=== PATIENT | male | born 1970 | race Caucasian/White ===

== ENCOUNTER 2024-11-17 20:08 | Emergency (ER) | payer BC, SELFPAY ==
[2024-11-17 20:33] VITALS: BP 125/90; PULSE 101; RESP 18; TEMP 37; O2SAT 97; BMI 20.5
--- NOTE | 2024-11-17 22:23 | ED_ITS ---
HPI - General Adult General Chief complaint: Unspecified Complaint, Adult Stated complaint: chills/sweaty/popping in ears Time Seen by Provider: 11/17/24 21:35 History of Present Illness HPI narrative: This 54-year-old male comes in reporting symptoms over the past 3 or 4 days. He states that he was excessively sweaty at work for a couple days then felt better and then again yesterday had similar symptoms. He states that he had some popping noise in his ears and feels some pressure in his sinuses. He states that he has a history of recurrent sinus infections after having surgery with metal plates installed in his facial bones long ago. He states that he does use alcohol excessively and drinks a pt of vodka every day. He admits that he is an alcoholic. He is going through a divorce currently. He arrives here with normal vital signs. His heart is borderline tachycardic. He denies having any withdrawal symptoms. Related Data Home Medications ?Medication ?Instructions ?Recorded ?Confirmed Kratom 11/17/24 Allergies Allergy/AdvReac Type Severity Reaction Status Date / Time No Known Drug Allergies Allergy Verified 11/17/24 20:41 Review of Systems Status of ROS: Reports: 10 or more systems reviewed and unremarkable except as noted in History and below Narrative: Constitutional: No weight gain or loss. He felt hot and then sweaty but did not measure a fever. Eyes: No discharge. No vision changes. HENT: No congestion, no sore throat. He reports some pressure in his sinuses. He also states that he had an abscessed tooth a few weeks ago and symptoms have resolved. Cardiovascular: No chest pain, no palpitations. Respiratory: No shortness of breath, no wheezes, no cough. Gastrointestinal: No abdominal pain, no vomiting, no diarrhea. Genitourinary: No dysuria, no hematuria. Musculoskeletal: Normal range of motion. Skin: No rashes, no pruritis. Neurological: No dizziness, weakness, sensory change, speech change. Endo/Heme/Allergies: No bruising or bleeding. No polydipsia. Pysch: no suicidality, no anxiety, no insomnia. All other systems reviewed and are negative. Exam Narrative: Exam Narrative: Constitutional: Well-developed, well-nourished, no acute distress. HEENT: Normocephalic, atraumatic. Tympanic membranes appear normal bilaterally. Neck: Normal range of motion. Nontender. Supple. Heart: Regular. No murmurs. Normal rate. Intact distal pulses. Lungs: Clear to auscultation. No chest discomfort. No wheezes, rhonchi, or rales. Abdomen: Normal bowel sounds. Nontender. No rebound tenderness. Genitalia: Deferred. Back: No midline tenderness. Normal range of motion. Extremities: Normal range of motion. No injury. Skin: Intact. No rash. Warm. No erythema or pallor. Neurologic: No altered sensation. No weakness. Alert and oriented. Psychiatric: No suicidality. No anxiety or depression. No insomnia. Nursing notes and vitals signs are reviewed. Const: Vital Signs, click to edit/add: Vital Signs - 24 hr 11/17/24 20:33 Temperature 98.6 F Pulse Rate [Pulse Oximeter] 101 H Respiratory Rate 18 Blood Pressure [Ri ght Upper Arm] 125/90 H Pulse Oximetry 97 Oxygen Delivery Me thod Room Air Course Vital Signs Vital signs: Initial Vital Signs Temperature 98.6 F 11/17/24 20:33 Temperature Source Temporal Artery Scan 11/17/24 20:33 Pulse Rate 101 H 11/17/24 20:33 Respiratory Rate 18 11/17/24 20:33 Blood Pressure 125/90 H 11/17/24 20:33 Blood Pressure Mean 101 11/17/24 20:33 Blood Pressure Position Sitting 11/17/24 20:33 Pulse Oximetry 97 11/17/24 20:33 Oxygen Delivery Method Room Air 11/17/24 20:33 Vital Signs Temperature 98.6 F 11/17/24 20:33 Pulse Rate 101 H 11/17/24 20:33 Respiratory Rate 18 11/17/24 20:33 Blood Pressure 125/90 H 11/17/24 20:33 Pulse Oximetry 97 11/17/24 20:33 Oxygen Delivery Method Room Air 11/17/24 20:33 Temperature 98.6 F 11/17/24 20:33 Pulse Rate 101 H 11/17/24 20:33 Respiratory Rate 18 11/17/24 20:33 Blood Pressure 125/90 H 11/17/24 20:33 Pulse Oximetry 97 11/17/24 20:33 Oxygen Delivery Method Room Air 11/17/24 20:33 Medical Decision Making MDM Narrative Medical decision making narrative: This patient comes in reporting generalized malaise and excessively sweaty over some of the past several days. He arrives here with reassuring vital signs and has no current symptoms. Additionally his exam is showing no abnormalities. He does state that he has recurrent sinus infections after having surgery on his sinuses. He did have metal plates installed because of trauma to his face long ago. He states that he has had recurrent infections since then. I did not do CT imaging as the metal would likely show significant artifact. I did elect to prescribe amoxicillin from the [employer] machine in the event that he may have a sinusitis or some dental symptoms as he reported occurring a few weeks ago. Discharge Plan Discharge Clinical Impression: Sinusitis Patient Disposition: Home, Self-Care Condition: Stable Additional Instructions: Take medication as prescribed. Take plenty of fluids. Continue other current plans. Follow up with MD return if worsening. Prescriptions: No Action Shana Stand Alone Forms: [employer] Info Instructions
--- OUTSIDE RECORDS SUMMARY | 2024-11-17 22:46 | XMS_ITS | Clinical Summary ---
Author Organization [facility] Address [address] [place] [address] Care Team Providers Care Night Time Babysitter Name Role Phone Yari Lazo APRN, C. N.P., D.N.P., M.S.N. Primary Care Provider Source Comments Patient records contain information from all sites at [facility]. For routine questions regarding patient records, call [phone] during business hours, M-F 8:00 AM - 5:00 PM Central Time. Record requests for emergency care only can be directed to [phone] at any time.[facility] Allergies No known active allergies Medications * This document contains information received from the source organization and may not represent a complete record from that organization. nicotine polacrilex (NICORETTE) 2 mg gum Chew 1 piece of gum every 1 to 2 hours as needed or as directed for nicotine withdrawal symptoms 110 each 11 12/26/2022 11:13 AM CDT 3 Active atorvastatin (LIPITOR) 10 mg tablet Take 1 tablet (10 mg total) by mouth daily. 90 tablet 3 04/27/2023 2:54 PM WASHERETTE MACHINE OPERATOR 4 Active FLUoxetine (PROzac) 20 mg capsule Take 1 capsule (20 mg total) by mouth daily. 90 capsule 3 04/27/2023 2:54 PM WASHERETTE MACHINE OPERATOR 4 Active busPIRone (BUSPAR) 15 mg tablet Take 1 tablet (15 mg total) by mouth 2 (two) times a day. For break through anxiety 60 tablet 11 05/28/2023 2:01 PM CDT 02/13/202 4 Active Active Problems Problem Noted Date Diagnosed Date Anxiety 04/17/2023 Overview (04/17/2023): 04/17/23 - increased anxiety since cessation of alcohol in Feb. Noticing social anxiety. Troubles sleeping at night time. More irritability. Questions if alcohol was masking alcohol previously. Assessment & Plan (04/17/2023 10:23 AM WASHERETTE MACHINE OPERATOR): We will start him on fluoxetine 20 mg daily. Also start buspar 15 mg twice daily. We discussed he can cut buspar in half and/or only use at bedtime if it is becoming too sedating. Could also explore trazodone or hydroxyzine at bedtime for anxiety if he continues to have sleep troubles. He was using gabapentin but weaned off. He did not find this particularly helpful for sleep. Continue to exercise. He will plan to return to work tomorrow without restrictions. I will ask our nursing team to reach out to him in 1 week to check in and encouraged him to reach out sooner if questions or concerns arise. Fasciitis Plantar 07/29/2020 Overview (07/29/2020): 07/29/20 - several years of plantar fasciitis. Finds work shoe inserts to be helpful. He is also found success in steroid injections into his feet bilaterally in the past. Has been sometime since he has had this completed. Assessment & Plan (07/29/2020 4:48 PM CDT): He has suffered from many years of plantar fasciitis. He has found success in symptom management with steroid injections into the feet before. I will set him up for injections. We did discuss consideration of visiting with Podiatry for custom- made inserts and shoe wear. He would like to hold off at this time but will let me know if he would like referral at a later date. [facility] patient Education handout on plantar fasciitis was provided to the patient for home exercises to complete regularly. Pain Shoulder Right 07/29/2020 Overview (07/29/2020): 07/29/20 - two remote injuries to right shoulder. He has pain with extending the arm across the chest. He also has limited range of motion with internal and external rotation. No weakness to the right arm. Assessment & Plan (07/29/2020 4:47 PM CDT): Will have him start with home exercises. I think there is a component of rotator cuff tendinopathy and underlying osteoarthritis in his dominant arm. He may utilize momj-hlw-typuiwe topicals, such as icy Hot or Voltaren gel for pain and discomfort. If no improvement or worsening symptoms, recommend x-ray of right shoulder and consider formal physical therapy. Release Contracture Dupuytren's Status Post 04/05 Smoking Tobacco Use Personal History 03/16/2020 Overview (12/26/2022): 03/16/20 - Chantix; working well started at age 14 and quit age 50. 1 pack per day on average. Did quit for 3 years during this time frame. Pack year history 33. 07/29/20 - would like to restart Chantix Quit smoking in 2021. Does vape. Assessment & Plan (12/26/2022 9:41 AM CDT): Quit smoking in 2021. Does vape. He is interested in trying the gum. Assessment & Plan (07/29/2020 4:45 PM CDT): Restart chantix. He is ready to quit. Assessment & Plan (03/16/2020 11:03 AM WASHERETTE MACHINE OPERATOR): Continue chantix. Moderate Or Severe Use Disor vesta (Dependence) Alcohol Remission 03/16/2020 Overview (04/17/2023): Last drink was Feb 22, 2023 anywhere from 2-5 drinks on average per night. Beverage of choice is beer or scotch. 12/26/2022 - drinking 4 beers nightly and average of several shots of whisky. Reports has been doing this consistently for 4 years. Interested in quitting. It is affecting his marriage. Reports starts drinking at 5pm when he gets home from work until he goes to bed. Reports that when he has tried to reduce consumption he has had insomnia, restlessness at bedtime. Plan to start gabapentin and connect with [facility] social work team for resources. 02/22/23 - last drink. He underwent detox through [facility]. Did attend some alc anony meetings. Family support. No cravings. Having social anxiety. Assessment & Plan (04/17/2023 10:14 AM WASHERETTE MACHINE OPERATOR): I congratulated him for this hard work he has been doing towards his health. He reports aside from the anxiety he is doing well. Relationship is going well with and family. He has found enjoyment in cooking. He would like to return to work tomorrow. I have signed his form for him to return tomorrow without any restrictions. Assessment & Plan (03/16/2020 11:33 AM WASHERETTE MACHINE OPERATOR): Discussed CDC recommendations of no more than 2 drinks per night for min. Recommend cutting down, especially in the presence of history of elevated liver enzymes. Contracture Dupuytren's 03/16/2020 Overview (04/19/2020): 03/16/2020-he reports approximately 6-7 years of contracture in the right hand 4th digit. He is right-hand dominant Within the past 18 months it has progressively stiffened where he cannot extend this digit. There is joint tenderness. There is no redness or inflammation. He is noticing that the left hand 4th digit as well as thumbs bilaterally are becoming affected as well. 04/15 - surgical release of contracture Assessment & Plan (03/16/2020 11:34 AM WASHERETTE MACHINE OPERATOR): Referral to Ortho. Surgical candidate verses injection. Will update hand x-rays prior to referral. Resolved Problems Problem Noted Date Diagnosed Date Resolved Date Elevated Liver Function Test 03/16/2020 04/17/2023 Overview (03/16/2020): 03/16/20 - reports history of 1 previously living in [place]. Likely related to alcohol use. Will recheck hepatic enzymes along with ultrasound of liver. Assessment & Plan (03/16/2020 11:33 AM WASHERETTE MACHINE OPERATOR): reports history of 1 previously living in [place]. Likely related to alcohol use. Will recheck hepatic enzymes along with ultrasound of liver. Encounters Date Type Department Care Team Description 11/17/2024 Nurse Triage Division of [facility] Internal Medicine, [facility], in [place], [place] [address] [place] [address] Roberta Cameron R.N. Excessive Sweating; Chills; Fatigue; Heaviness in his Arms and Legs from Last 3 Months Immunizations Immunization Administration Dates Next Due Tdap 03/16/2020 Family History Medical History Relation Name Comments No Known Problems Brother 1 No Known Problems Brother 2 No Known Problems Brother 3 Alcohol abuse Father Father Benign prostatic hyperplasia Father Father Liver disease Father Father Prostate cancer Father Father Dementia Mother Mother Hyperlipidemia Mother Mother Transient ischemic attack Mother Mother Prostate cancer Other paternal unc les (8 brothers) Depression Sister 1 Sister No Known Problems Sister 2 No Known Problems Sister 3 Relation Name Status Comments Brother 1 Alive Brother 2 Alive Brother 3 Alive Father Father Alive Mother Mother Other Sister 1 Sister Alive Sister 2 Alive Sister 3 Alive Social History Tobacco Use Types Packs/Day Years Used Date Smoking Tobacco: Former Cigarettes 0.3 6 0 03/05/2015 - 03/05/2021 Passive Smoke Exposure: Never Smokeless Tobacco: Never Alcohol Use Standard Drinks/Week Comments Yes 3 (1 standard drink = 0.6 oz pur e alcohol) [facility] Utilities Answer Date Recorded In the past 12 months has e [employer], gas, oil, or water [employer] threatened to shut off services in your home? No 01/12/2024 Hunger Vital Sign Answer Date Recorded Within the past 12 months, y ou worried that your food would run out before you got the money to buy more. Never true 01/12/20 24 Within the past 12 months, t he food you bought just didn't last and you didn't have money to get more. Never true 01/12/2024 PRAPARE - Transportation Answer Date Re corded In the past 12 months, has l ack of transportation kept you from medical appointments or from getting medications? No 11/2023 In the past 12 months, has l ack of transportation kept you from meetings, work, or from getting things needed for daily living? No 01/12/2024 Housing Stability Answer Date Recorded What is your living situation today? I have a crystal place to live 01/12/2024 Education Answer Date Recorded What is the highest level of school you have completed or the highest degree you have received? 12th grade 03/18/2020 Sex and Gender Information Value Date Recorded Sex Assigned at Male 11/21/2022 12:03 PM CDT Legal Sex Male 9:21 AM WASHERETTE MACHINE OPERATOR Gender Identity Male 03/17/2020 5:12 PM WASHERETTE MACHINE OPERATOR Sexual Orientation Straight 03/17/2020 5: 12 PM WASHERETTE MACHINE OPERATOR Last Filed Vital Signs Vital Sign Reading Time Taken Comments Blood Pressure 128/79 04/17/2023 9:56 AM WASHERETTE MACHINE OPERATOR Pulse 86 04/17/2023 9:00 AM WASHERETTE MACHINE OPERATOR Temperature 37 C (98.6 F) 11/21/2022 6:24 PM CDT Respiratory Rate 18 09/10/2020 1:45 PM CDT Oxygen Saturation 96% 11/21/2022 6:24 PM CDT Inhaled Oxygen Concentration - - Weight 70.1 kg (154 lb 8.7 oz) 04/17/2023 9:00 A M WASHERETTE MACHINE OPERATOR Height 180.5 cm (5' 11.06) 12/26/2022 9:21 AM C DT Body Mass Index 21.52 12/26/2022 9:21 AM CDT Plan of Treatment Upcoming Encounters Date Type Department Care Team (Late st Contact Info) Description 11/18/2024 9:20 AM CDT Comprehensive Visit Division of [facility] Internal Medicine, [facility], in [place], [place] [address] [place] [phone] Yari Lazo APRN, C.N.P., D.N.P., M.S.N. [address] [place] [phone] Health Maintenance Due Date Last Done Comments CT Colonography 1970 Cologuard 1970 FIT 1970 HIV Screening 1970 Hepatitis C Screening 1970 Hepatitis B Vaccines (1 of 3 - 19+ 3-dose series) 1989 Pneumococcal vaccine (50+ years) (1 of 2 - PCV) 1989 Zoster Vaccines (1 of 2) 02/22/2020 Depression Screening (Annual PHQ-2) 03/05/2024 COVID-19 Vaccine (1 - season) 2024 Influenza Vaccine (#1) 2024 Fasting Glucose for Diabetes Screening 02/09/2026 02/09/2023, 12/26/2022, 12/26/2022, Additional history exists Lipid (Cholesterol) Screening 02/10/2028 02/09/2023, 12/26/2022, 03/16/2020 DTaP,Tdap,and Td Vaccines (2 - Td or Tdap) 03/16/2030 03/16/2020 Colonoscopy 04/08/2030 04/08/2020 Colorectal Cancer Screening 04/08/2030 IPV Vaccines Aged Out No longer eligi ble based on patient's age to complete this topic Medical Devices Implanted Type Area Adapted Physical Education Teacher Device Identifier Shelf Expiration Date Model / Serial / Lot Hardware E.G. Pins/Screws/R ods Hardware e.g. pins/screws/ rods Right: Eye 2.0 T-Plate Implanted:Qty : 1 on 04/15/2020 by Ernesto Panda M.D. at [facility] Hardware e.g. pins/screws/ rods Right: Ring Finger [employer] MCT-7N / / 2.0 Cortical Screw Implanted:Qty : 1 on 04/15/2020 by Ernesto Panda M.D. at [facility] Hardware e.g. pins/screws/ rods Right: Ring Finger [employer] MCCS2.0-0 6 / / 2.0 Cortical Screw Implanted:Qty : 1 on 04/15/2020 by Ernesto Panda M.D. at [facility] Hardware e.g. pins/screws/ rods Right: Ring Finger [employer] MCCS2.0-0 7 / / 2.0 Cortical Screw Implanted:Qty : 1 on 04/15/2020 by Ernesto Panda M.D. at [facility] Hardware e.g. pins/screws/ rods Right: Ring Finger [employer] MCCS2.0-0 9 / / 2.0 Cortical Screw Implanted:Qty : 1 on 04/15/2020 by Ernesto Panda M.D. at [facility] Hardware e.g. pins/screws/ rods Right: Ring Finger [employer] MCCS2.0-1 6 / / 2.0 Locking Screws Implanted:Qty : 1 on 04/15/2020 by Ernesto Panda M.D. at [facility] Hardware e.g. pins/screws/ rods Right: Ring Finger [employer] MCLS2.0-0 6 / / 2.0 Locking Screws Implanted:Qty : 2 on 04/15/2020 by Ernesto Panda M.D. at [facility] Hardware e.g. pins/screws/ rods [employer] MCLS2.0-7 / / 2.0 Locking Screws Implanted:Qty : 1 on 04/15/2020 by Ernesto Panda M.D. at [facility] Hardware e.g. pins/screws/ rods [employer] MCLS2.0-1 6 / / Procedures Procedure Name Priority Date/Time Associated Diagnosis Comments BASIC METABOLIC PANEL, S/P Routine 02/09/2023 2:19 PM WASHERETTE MACHINE OPERATOR Alcohol Moderate Or Severe Use Disorder (Dependence) Uncomplicated (HCC) LIPID PANEL, S Routine 02/09/2023 2:19 PM WASHERETTE MACHINE OPERATOR Alcohol Moderate Or Severe Use Disorder (Dependence) Uncomplicated (HCC) COLONOSCOPY Routine 04/08/2020 10:17 AM WASHERETTE MACHINE OPERATOR Screening Cancer Colon from Last 3 Months or Most Recently Relevant to Health Maintenance Results * Lipid Panel (02/09/2023 2:19 PM WASHERETTE MACHINE OPERATOR) Triglycerides 103 mg/dL 02/09/2023 3:14 PM WASHERETTE MACHINE OPERATOR DTL Comment: ----REFERENCE VALUE---- Normal: <150 mg/dL Borderline High: 150-199 mg/dL High: 200-499 mg/dL Very High: > or =500 mg/dL Cholesterol, Total 194 mg/dL 2022 3:14 PM WASHERETTE MACHINE OPERATOR DTL Comment: ----REFERENCE VALUE---- Desirable: < 200 mg/dL Borderline High: 200 - 239 mg/dL High: > or = 240 mg/dL Cholesterol, LDL, Calculated 74 mg/dL 02/09/2023 3:14 PM WASHERETTE MACHINE OPERATOR DTL Comment: ----REFERENCE VALUE---- Desirable: <100 mg/dL Above Desirable: 100-129 mg/dL Borderline High: 130-159 mg/dL High: 160-189 mg/dL Very High: >=190 mg/dL ----ADDITIONAL INFORMATION---- LDL cholesterol calculated using the Romeo/NIH equation. Cholesterol, HDL, S 102 >=40 mg/dL 02/09/2023 3:14 PM WASHERETTE MACHINE OPERATOR DTL Cholesterol, Non-HDL, Calculated 92 mg/dL 02/09/2023 3:14 PM WASHERETTE MACHINE OPERATOR DTL Comment: ----REFERENCE VALUE---- Desirable: <130 mg/dL Above Desirable: 130-159 mg/dL Borderline High: 160-189 mg/dL High: 190-219 mg/dL Very High: > or =220 mg/dL Fasting (8 HR or more) Yes 02/09/2023 2:49 PM WASHERETTE MACHINE OPERATOR DTL Blood (Blood, Venous) 02/09/2023 2:19 PM WASHERETTE MACHINE OPERATOR 02/09/2023 2:49 PM WASHERETTE MACHINE OPERATOR Yari Lazo APRN, C.N.P., D.N.P., M.S.N. LAB BLOOD ADD-ON Final Result [facility] [address] [place] [address], [facility] [address] [place] [address] * (ABNORMAL) Basic Metabolic Panel (02/09/2023 2:19 PM WASHERETTE MACHINE OPERATOR) Pathologist [facility] Potassium, S 3.8 3.6 - 5.2 mmol/L 02/09/2023 3:14 PM WASHERETTE MACHINE OPERATOR DTL Sodium, S 140 135 - 145 mmol/L 02/09/2023 3:14 PM WASHERETTE MACHINE OPERATOR DTL Chloride, S 102 98 - 107 mmol/L 02/09/2023 3:14 PM WASHERETTE MACHINE OPERATOR DTL Bicarbonate, S 24 22 - 29 mmol/L 02/09/2023 3:14 PM WASHERETTE MACHINE OPERATOR DTL Anion Gap 14 7 - 15 02/09/2023 3:14 PM WASHERETTE MACHINE OPERATOR DTL BUN (Blood Urea Nitrogen), S 6(L) 8 - 24 mg/dL 02/09/2023 3:14 PM WASHERETTE MACHINE OPERATOR DTL Creatinine 0.81 0.74 - 1.35 mg/dL 02/09/2023 3:14 PM WASHERETTE MACHINE OPERATOR DTL Estimated GFR (eGFR) >90 >=60 mL/min/BSA 02/09/2023 3:14 PM WASHERETTE MACHINE OPERATOR DTL Comment: Estimated GFR calculated using the 2020 CKD_EPI creatinine equation. Calcium, Total, S 9.8 8.6 - 10.0 mg/dL 02/09/2023 3:14 PM WASHERETTE MACHINE OPERATOR DTL Glucose, S 94 70 - 140 mg/dL 02/09/2023 3:14 PM WASHERETTE MACHINE OPERATOR DTL Blood (Blood, Venous) 02/09/2023 2:19 PM WASHERETTE MACHINE OPERATOR 02/09/2023 2:49 PM WASHERETTE MACHINE OPERATOR Yari Lazo APRN, C.N.P., D.N.P., M.S.N. LAB BLOOD ADD-ON Final Result [address] [address], [facility] [place] [address] * Colonoscopy (04/08/2020 10:17 AM WASHERETTE MACHINE OPERATOR) 04/08/2020 10:1 7 AM WASHERETTE MACHINE OPERATOR Impressions [facility] - 04/08/2020 11:32 AM WASHERETTE MACHINE OPERATOR Post-op Diagnoses: - The entire examined colon is normal. - No specimens collected. Narrative [facility] - 04/08/2020 11:32 AM WASHERETTE MACHINE OPERATOR [facility] GI Patient Name: Venus Kuo Date of : 1970 Age: 50 Gender: Male Procedure Date: 04/08/2020 Procedure: Colonoscopy Providers: Marky Antunez MD Referring Provider: Yari Nazario Pre-op Diagnoses: Screening for colorectal malignant neoplasm Recommendation: - The patient will be observed post-procedure, until all discharge criteria are met. - Return to referring physician as previously scheduled. - Repeat colonoscopy in 10 years for screening purposes. Findings: The colon (entire examined portion) appeared normal. Procedural Details: The patient was seen, evaluated, history reviewed, airway and heart-lung exams were performed by licensed provider and were satisfactory for planned level of sedation care. The risks, benefits and alternatives for the procedure and sedation were discussed and informed consent was obtained. A procedural pause was conducted in the presence of assisting personnel to verify the correct patient identity and procedure to be performed. Throughout the procedure, the patient's blood pressure, pulse, and oxygen saturations were monitored continuously. The Pediatric Colonoscope was introduced under direct vision through the anus and advanced to the cecum, identified by appendiceal orifice and ileocecal valve. The colonoscopy was performed without difficulty. The patient tolerated the procedure well. The quality of the bowel preparation was good. The quality of the bowel preparation was evaluated using the BBPS ([place] Bowel Preparation Scale) with scores of: Right Colon = 2 (minor amount of residual staining, small fragments of stool and/or opaque liquid, but mucosa seen well), Transverse Colon = 3 (entire mucosa seen well with no residual staining, small fragments of stool or opaque liquid) and Left Colon = 3 (entire mucosa seen well with no residual staining, small fragments of stool or opaque liquid). The total BBPS score equals 8. Estimated Blood Loss: Estimated blood loss: none. Complications: No immediate complications. Sedation: Anesthesia was administered by an anesthesia professional. The following parameters were monitored: oxygen saturation, heart rate, blood pressure, respiratory rate, EKG, adequacy of pulmonary ventilation, and response to care. Attending Participation: I personally performed the entire procedure. Marky Antunez MD 04/08/2020 11:32:48 AM This report has been signed electronically. Number of Addenda: 0 Yari Lazo APRN, C.N.P., D.N.P., M.S.N. GI PROCEDURE ORDERABLES Final Result [employer] NA from Last 3 Months or Most Recently Relevant to Health Maintenance Insurance [facility] Care Teams Night Time Babysitter Relationship Specialty Start Date End Date Yari Lazo APRN, C.N.P., D.N.P., M.S.N. [address] [place] [phone] PCP - General Internal Medicine 03/11/20
--- OUTSIDE RECORDS SUMMARY | 2024-11-17 22:46 | XMS_ITS | Encounter Summary ---
Author Organization [facility] Address [address] [place] [address] Care Team Providers Care Solidworks Drafter Name Role Phone Yari Lazo APRN, C. N.P., D.N.P., M.S.N. Primary Care Provider Reason for Visit * Reason Onset Date Comments Excessive Sweating 11/17/2024 Chills 11/17/2024 Fatigue 11/17/2024 Heaviness in his Arms and Legs 11/17/2024 Encounter Details Date Type Department Care Team (Late st Contact Info) Description 11/17/2024 Nurse Triage Division of [facility] Internal Medicine, [facility], in [place], [place] [address] [place] [address] Roberta Cameron, R.N. Excessive Sweating; Chills; Fatigue; Heaviness in his Arms and Legs Social History Tobacco Use Types Packs/Day Years Used Date Smoking Tobacco: Former Cigarettes 0.3 6 0 03/05/2015 - 03/05/2021 Passive Smoke Exposure: Never Smokeless Tobacco: Never Alcohol Use Standard Drinks/Week Comments Yes 3 (1 standard drink = 0.6 oz pur e alcohol) [facility] Utilities Answer Date Recorded In the past 12 months has e electric, gas, oil, or water company threatened to shut off services in your [...] PM CDT Legal Sex Male 9:21 AM CASH APPLICATION CLERK Gender Identity Male 03/17/2020 5:12 PM CASH APPLICATION CLERK Sexual Orientation Straight 03/17/2020 5: 12 PM CASH APPLICATION CLERK documented as of this encounter Miscellaneous Notes * Telephone Encounter - Roberta Cameron R.N. - 11/17/2024 6:24 PM CDT Chief Complaint / Reason for Call Patient is a 54 y.o. male calling regarding Excessive Sweating, Chills, Fatigue, and Heaviness in his Arms and Legs. Assessment Concern: Sweating without exertion followed by chills, fatigue, and heaviness in his arms and legs.Sometimes he loses his footing a little bit so holds on to things. His left ear was popping a lot5 days ago. Present for: 4 and 5 days ago, he was fine for 3 days, and symptoms returned again today. His mouthsuddenly became completely dry one time today. Home cares tried: States he drinks a lot of alcohol, slept a lot last night, drinking electrolyte drinks, increased water. Calling to request: appointment The recommended disposition is See a health care provider within 4 hours. Due to time of day, he isadvised to go to the nearest ER. Reason for Disposition [1] MODERATE weakness (e.g., interferes with work, school, normal activities) AND [2] cause unknown(Exceptions: Weakness from acute minor illness or poor fluid intake; weakness is chronic and not worse.) Protocols used: Weakness (Generalized) and [id number] Care Advice Patient/Caregiver understands and will follow care advice?: Yes, able to teach back Weakness (Generalized) and [id number] Nurse Roberta Melgar Nov 17, 2024 06:37 PM Care Advice SEE HCP (OR PCP TRIAGE) WITHIN 4 HOURS: BRING MEDICINES: * Please bring a list of your current medicines when you go to see the doctor. * It is also a good idea to bring the pill bottles too. This will help the doctor to make certain you are taking the right medicines and the right dose. CALL BACK IF: * You become worse documented in this encounter Plan of Treatment Upcoming Encounters Date Type Department Care Team (Late st Contact Info) Description 11/18/2024 9:20 AM CDT Comprehensive Visit Division of [facility] Internal Medicine, [facility] in [place], [place] [address] [place] [address] Yari Lazo APRN, C.N.P., D.N.P., M.S.N. [address] [place] [address] documented as of this encounter Visit Diagnoses Not on filedocumented in this encounter Care Teams Solidworks Drafter Relationship Specialty Start Date End Date Yari Lazo APRN, C.N.P., D.N.P., M.S.N. [address] [place] [address] PCP - General Internal Medicine 03/11/20 documented as of this encounter
--- OUTSIDE RECORDS SUMMARY | 2024-11-17 22:46 | XMS_ITS | Clinical Summary ---
Author Organization [facility] er Address [address] [place] [address] Care Team Providers Care Button Cutting Machine Operator Name Role Phone Elsewhere, Pcp Primary Care Provider Unavailabl e Allergies No known active allergies Medications atorvastatin (LIPITOR) 10 MG tablet Take 1 tablet (10 mg total) by mouth daily 4 Active busPIRone (BUSPAR) 15 MG tablet Take 1 tablet (15 mg total) by mouth 2 times daily 4 Active FLUoxetine (PROzac) 20 MG capsule Take 1 capsule (20 mg total) by mouth daily 4 Active nicotine polacrilex (EQ Nicotine Polacrilex) 4 MG gumIndications: Nicotine use disorder Chew 1 each (4 mg total) if needed for smoking cessation 100 each 1 4 Active Active Problems No known active problems Immunizations Immunization Administration Dates Next Due Tdap 03/16/2020 Social History Tobacco Use Types Packs/Day Years Used Date Smoking Tobacco: Every Day Cigarettes Smokeless Tobacco: Never Tobacco Cessation:Ready to Q uit: No; Counseling Given: No Alcohol Use Standard Drinks/Week Comments Not Currently 0 (1 standard drink = 0.6 oz pure alcohol) at [facility] - drinking about 1L a day B1300 Health Literacy Answer Date Recor ded How often do you need to hav e someone help you when you read instructions, pamphlets, or other written material from your doctor or pharmacy? Never 01/17/2024 [facility] Utilities Answer Date Recorded In the past 12 months has e electric, gas, oil, or water company threatened to shut off services in your home? No 01/17/2024 Humiliation, Afraid, Rape, and Kick questionnair e Answer Date Recorded Within the last year, have y ou been afraid of your partner or ex-partner? No 01/17/2024 Within the last year, have y ou been humiliated or emotionally abused in other ways by your partner or ex-partner? No Within the last year, have y ou been kicked, hit, slapped, or otherwise physically hurt by your partner or ex-partner? No 01/17/2024 Within the last year, have y ou been raped or forced to have any kind of sexual activity by your partner or ex-partner? No 01/17/2024 Social Connection and Isolation Panel [NHANES] A nswer Date Recorded In a typical week, how many times do you talk on the phone with family, friends, or neighbors? Once a week 01/17/2024 How often do you get together with friends or re latives? Once a week 01/17/2024 How often do you attend christian or religion serv ices? Never 01/17/2024 Do you belong to any clubs o r organizations such as christian groups, unions, fraternal or athletic groups, or school groups? No 01/17/2024 How often do you attend meet ings of the clubs or organizations you belong to? Never 01/17/2024 Are you , , di vorced, , never , or living with a partner? 01/17/2024 AUDIT-C Answer Date Recorded Q1: How often do you have a drink containing alcohol? 4 or more times a week 01/17/2024 Q2: How many drinks containi ng alcohol do you have on a typical day when you are drinking? 7 to 9 Q3: How often do you have si x or more drinks on one occasion? Daily or almost daily 01/17/2024 Overall Financial Resource Strain (CARDIA) Answe r Date Recorded How hard is it for you to pa y for the very basics like food, housing, medical care, and heating? Not hard at all 01/17/2024 PHQ-2 Answer Date Recorded PHQ-9 Total Score 2 01/17/2024 [facility] [place] of Occupat ional Health - Occupational Stress Questionnaire Answer Date Recorded Do you feel stress - tense, restless, nervous, or anxious, or unable to sleep at night because your mind is troubled all the time - these days? To some extent 01/17/2024 Exercise Vital Sign Answer Date Recorde d On average, how many days pe r week do you engage in moderate to strenuous exercise (like a brisk walk)? 5 days 01/17/2024 On average, how many minutes do you engage in exercise at this level? 150+ min 01/17/2024 Hunger Vital Sign Answer Date Recorded Within the past 12 months, y ou worried that your food would run out before you got the money to buy more. Never true 01/17/20 24 Within the past 12 months, t he food you bought just didn't last and you didn't have money to get more. Never true 01/17/2024 PRAPARE - Transportation Answer Date Re corded In the past 12 months, has l ack of transportation kept you from medical appointments or from getting medications? No 01/03 In the past 12 months, has l ack of transportation kept you from meetings, work, or from getting things needed for daily living? No 01/17/2024 Housing Stability Vital Sign Answer Antony e Recorded In the last 12 months, was t here a time when you were not able to pay the mortgage or rent on time? No 01/17/2024 In the past 12 months, how m any times have you moved where you were living? 0 01/17/2024 At any time in the past 12 m [facility], were you homeless or living in a assisted (including now)? No 01/17/2024 Interpersonal Safety Questionnaire Answer Date Recorded How often does anyone, juvenal piedra family and friends, physically hurt you? Never 01/17/2024 How often does anyone, juvenal piedra family and friends, insult or talk down to you? Never 01/17/2024 How often does anyone, juvenal piedra family and friends, threaten you with harm? Never 01/17/2024 How often does anyone, juvenal piedra family and friends, threaten you with harm? Never 01/17/2024 Sex and Gender Information Value Date Recorded Sex Assigned at Not on file Legal Sex Male 6:47 AM CDT Gender Identity Not on file Sexual Orientation Not on file Last Filed Vital Signs Vital Sign Reading Time Taken Comments Blood Pressure 113/81 01/17/2024 1:13 PM PEOPLESOFT FUNCTIONAL ANALYST Pulse 98 01/17/2024 1:10 PM PEOPLESOFT FUNCTIONAL ANALYST Temperature 36.4 C (97.6 F) 01/17/2024 1:10 PM PEOPLESOFT FUNCTIONAL ANALYST Respiratory Rate 18 01/17/2024 1:10 PM PEOPLESOFT FUNCTIONAL ANALYST Oxygen Saturation 95% 01/17/2024 1:10 PM PEOPLESOFT FUNCTIONAL ANALYST Inhaled Oxygen Concentration - - Weight 71.4 kg (157 lb 8 oz) 01/17/2024 1:10 PM PEOPLESOFT FUNCTIONAL ANALYST Height 179.1 cm (5' 10.5) 01/17/2024 1:10 PM CS T Body Mass Index 22.28 01/17/2024 1:10 PM PEOPLESOFT FUNCTIONAL ANALYST Plan of Treatment Health Maintenance Due Date Last Done Comments CT Colonography 1970 FIT-DNA 1970 Sigmoidoscopy 1970 iFOBT 1970 Pneumococcal Vaccine: 50+ Ye ars (1 of 2 - PCV) 1989 Zoster Vaccines (1 of 2) 02/22/2020 COVID-19 Vaccine (1 - 2023-2 5 season) 2024 Influenza Vaccine (#1) 2024 DTaP,Tdap,and Td Vaccines (2 - Td or Tdap) 03/16/2030 03/16/2020 Colonoscopy 04/08/2030 04/08/2020 Colorectal Cancer Screening 04/08/2030 HPV Vaccines Aged Out No longer eligi ble based on patient's age to complete this topic Insurance [facility] [employer] Member Subscriber Plan / Payer (Ef fective 2020-Present) Name:VENUS GANDHI Relation to Subscriber:Spouse Name:MAYRA GANDHI Date of :1973 Address: [address] [place] [address] [address] [place] [address] Payer ID:[id number] (NAIC) Group ID:[id number] Type:Not on file Address: [address] [address] [place] [address] Care Teams Button Cutting Machine Operator Relationship Specialty Start Date End Date Elsewhere, Pcp [address] [place] [address] PCP - General 06/05/24
== END 2024-11-17 22:49 | disposition home or self-care (01) ==
LOC: ED 22:44
PROVIDERS: Emergency Provider Emergency Medicine Emergency Medical Services
DX: J32.9 Chronic sinusitis, unspecified (principal)
CPT/HCPCS: 99283; 99284

== ENCOUNTER 2024-11-22 04:03 | Emergency (ER) | payer BC, SELFPAY ==
--- OUTSIDE RECORDS SUMMARY | 2024-11-22 04:06 | XMS_ITS | Clinical Summary ---
Author Organization [facility] er Address [address] [place] [address] Care Team Providers Care Environmental Emergencies Assistant Name Role Phone Elsewhere, Pcp Primary Care [...] drink = 0.6 oz pure alcohol) at [facility] - drinking about 1L a day B1300 Health Literacy Answer Date Recor ded How often do you need to hav e someone help you when you read instructions, pamphlets, or other written material from your doctor or pharmacy? Never 01/17/2024 [facility] Utilities Answer Date Recorded In the [...] week 01/17/2024 How often do you attend yarsanism or alevism serv ices? Never 01/17/2024 Do you belong to any clubs o r organizations such as yarsanism groups, unions, fraternal or athletic groups, or [...] Date Recorded PHQ-9 Total Score 2 01/17/2024 [facility] [place] of Occupat ional Health - Occupational Stress [...] any time in the past 12 m [facility], were you homeless or living in a retirement (including now)? No 01/17/2024 Interpersonal Safety Questionnaire [...] Comments Blood Pressure 113/81 01/17/2024 1:13 PM GROUP ART SUPERVISOR Pulse 98 01/17/2024 1:10 PM GROUP ART SUPERVISOR Temperature 36.4 C (97.6 F) 01/17/2024 1:10 PM GROUP ART SUPERVISOR Respiratory Rate 18 01/17/2024 1:10 PM GROUP ART SUPERVISOR Oxygen Saturation 95% 01/17/2024 1:10 PM GROUP ART SUPERVISOR Inhaled Oxygen Concentration - - Weight 71.4 kg (157 lb 8 oz) 01/17/2024 1:10 PM GROUP ART SUPERVISOR Height 179.1 cm (5' 10.5) 01/17/2024 1:10 PM CS T Body Mass Index 22.28 01/17/2024 1:10 PM GROUP ART SUPERVISOR Plan of Treatment Health Maintenance Due Date [...] patient's age to complete this topic Insurance [facility] [employer] Member Subscriber Plan / Payer (Ef fective 2020-Present) Name:VENUS GANDHI Relation to Subscriber:Spouse Name:MAYRA GANDHI Date of :1973 Address: [address] [place] [address] [address] [place] [address] Payer ID:[id number] (NAIC) Group ID:[id number] Type:Not on file Address: [address] [address] [place] [address] Care Teams Environmental Emergencies Assistant Relationship Specialty Start Date End Date Elsewhere, Pcp [address] [place] [address] PCP - General 06/05/24
[2024-11-22 04:07] VITALS: BP 143/93; PULSE 99; RESP 16; TEMP 36.9; O2SAT 95; BMI 20.9
--- NOTE | 2024-11-22 04:25 | ED_ITS ---
HPI - General Adult General Chief complaint: Unspecified Complaint, Adult Stated complaint: fatigue, not feeling right Time Seen by Provider: 11/22/24 04:25 History of Present Illness HPI narrative: Pt states she has been feeling weird since last , 2024. Pt admits to being a alcoholic, drank one pint of vodka today. Pt is worried about being a diabetic. States his last blood work was done at [facility] about 2 years ago. No complaints of CP or SOB. Pt states he legs feel heavy. Similar to weakness and fatigue when having the flu 54-year-old man presenting to emergency department with concern of fatigue and just not feeling well over the last 9 days or so. He mentions a number of times that he is an alcoholic and that he knows that this is bad for him. He does drink 1 pt of vodka a day least over the last few months. Longest period of sobriety sounds to have been 12 years. Has been couple of years since he had any blood work. He has a strange sensation in his head indicating the right side and a sense of a heaviness if he would lean over. Has some popping in his ear sometimes. Through this facility was initiated on amoxicillin 5 days ago for question of sinusitis possibly dental infection. He does endorse some seasonal allergies but is not clear to me that they are being treated. He has been also feeling some pressure in both sides of his neck some sort. He mentions that he had reconstructive surgery with titanium plates in the right cheek. Was left with a larger sinus meatus/opening somehow following stitch ripping during removal of gauze after surgery. He feels that encountering dust exposure he is prone to sinus problems. He does not describe though a sinus tract. Says he is prone to ?chronic sinus infections'. May have had imaging of this area in the past; he is uncertain. Today at work just started experiencing sweats without fever. Connected with primary last week but did not have any blood drawn. He feels generally weak in his body, legs. Sounds like there was some concern of potential diabetes as well. His urine has been rather dark or smelling strong. Something is wrong and would like it investigated. Does accept that he might be dehydrated. Does take a B vitamin and some other minerals. Also takes kratom daily. Related Data Home Medications ?Medication ?Instructions ?Recorded ?Confirmed Kratom 11/17/24 Allergies Allergy/AdvReac Type Severity Reaction Status Date / Time No Known Drug Allergies Allergy Verified 11/17/24 20:41 Review of Systems Status of ROS: Reports: 6 or more systems reviewed and unremarkable except as noted in History and below [facility] Social History How often do you have a drink containing alcohol: 4 or more times a week How many standard drinks containing alcohol do you have on a typical day: 5 or 6 How often do you have six or more drinks on one occasion: Daily or almost daily AUDIT-C Alcohol total score: 10 Non-prescribed substance use: denies use Exam Narrative: Exam Narrative: Pleasant. Talkative. Slim. Cheeks are a little flushed almost seborrheic. Cranial nerves 2-12 are intact. Pupils are 3 mm and equal. Head does not look to have sustained any recent trauma. Ear canals and TMs are clear. Dentition with extensive repair. Do not appreciate any swelling. Tooth 20 or 19 is the area that might be causing some trouble. There is a defect but without clear cavity centrally. Neck is supple. No lymphadenopathy. Lungs are clear. Heart in elevated rate and regular rhythm. Moving all extremities fluidly. Well- perfused. No lower extremity edema. Sclera are injected. Contracture of the right 4th finger consistent with Dupuytren's and I think the left 4th as well. Const: Vital Signs, click to edit/add: Vital Signs - 24 hr 11/22/24 04:07 Temperature 98.5 F Pulse Rate [Left P ulse Oximeter] 99 Respiratory Rate 16 Blood Pressure [Ri ght Upper Arm] 143/93 H Pulse Oximetry 95 Oxygen Delivery Me thod Room Air Documenting provider has reviewed patient's vital signs: yes Course Vital Signs Vital signs: Initial Vital Signs Temperature 98.5 F 11/22/24 04:07 Temperature Source Temporal Artery Scan 11/22/24 04:07 Pulse Rate 99 11/22/24 04:07 Pulse Rhythm Regular 11/22/24 04:07 Respiratory Rate 16 11/22/24 04:07 Blood Pressure 143/93 H 11/22/24 04:07 Blood Pressure Mean 109 H 11/22/24 04:07 Blood Pressure Position Sitting 11/22/24 04:07 Pulse Oximetry 95 11/22/24 04:07 Oxygen Delivery Method Room Air 11/22/24 04:07 Vital Signs Temperature 98.5 F 11/22/24 04:07 Pulse Rate 99 11/22/24 04:07 Respiratory Rate 16 11/22/24 04:07 Blood Pressure 143/93 H 11/22/24 04:07 Pulse Oximetry 95 11/22/24 04:07 Oxygen Delivery Method Room Air 11/22/24 04:07 Temperature 98.5 F 11/22/24 04:07 Pulse Rate 99 11/22/24 04:07 Respiratory Rate 16 11/22/24 04:07 Blood Pressure 143/93 H 11/22/24 04:07 Pulse Oximetry 95 11/22/24 04:07 Oxygen Delivery Method Room Air 11/22/24 04:07 Medications Administered Medications: Generic Name Dose Route Start Last Admin Trade Name Freq PRN Reason Stop Dose Admin Nicotine Polacrilex 4 mg 11/22/24 06:33 11/22/24 06:59 Nicotine 4 Mg Gum BUCCAL 4 mg Q1H PRN Administration Nicotine Cravings Discontinued Medications Generic Name Dose Route Start Last Admin Trade Name Freq PRN Reason Stop Dose Admin Sodium Chloride 1,000 mls @ 1,000 mls/hr 11/22/24 04:46 11/22/24 05:43 0.9 % Sodium Chloride 1000 Ml IV 11/22/24 05:45 Infused .Q1H ONE Infusion Thiamine HCl 250 mg/ Sodium 102.5 mls @ 102.5 mls/hr 11/22/24 04:49 11/22/24 05:43 Chloride IVPB 11/22/24 04:50 Infused ONCE ONE Infusion Folic Acid 1 mg/ Sodium 50.2 mls @ 100.4 mls/hr 11/22/24 04:46 11/22/24 05:42 Chloride IVPB 11/22/24 04:47 Infused ONCE ONE Infusion Medical Decision Making MDM Narrative Medical decision making narrative: I would have concerns that he reached a tipping point, so to speak, with his alcohol consumption. Certainly alcohol like this and in general is a toxin. Could be experiencing some fatigue and neuromuscular difficulties related to alcohol use; B vitamin deficiencies in particular regardless of supplementation. No family history of neuromuscular disorders like MS. Without pain in face I think less likely to have a sinus infection. Does not have clear evidence of a dental problem either an regardless has been taking amoxicillin at this point. I suppose could have intra cranial/cerebral problem i.e. tumor. Isn't describing headaches though. No discoordination just general weakness. Kratom unlikely to be contributing to good health either. Sure, could have developed diabetes. No noted toxin exposure at work. He would like some investigation into these symptoms. We discussed broad laboratory approach initially. Some of these will be send outs which will require follow-up primary care. Will also place IV. Will be receiving IV fluids, thiamine and folate. Labs notable for a slightly low vitamin-D level and not unexpectedly elevated transaminases. Some red cell indices are mildly macrocytic. Normal B12 level though. Alcohol level of 0.23. Pending yet are vitamin B6 in B1 levels along with folate. On reassessment is overall improved. Feels like he has got little more energy. We talk some more and he mentions degree of stress he has been experiencing. He said that after this had been anticipating going into detox. Currently from his . They talk daily but are taking a year apart. Sounds like his drinking is the problem. I discussed how the vagaries of his symptoms are not distinguishable from alcohol consumption. Outside of much more focused findings like severe headache, indication of infection elsewhere, focal weaknesses, visual disturbances, would need to be sober before could do proper evaluation or just determine validity of symptoms independent of alcohol. He does express interest in detox and has been considering [facility]. No history of DTs/seizures. He is concerned about making it back on Sunday for work because if he does not he will not have a job. I have encouraged him to at least try 48 hours of detox. Challenge will be getting a ride back from detox as his car is here. Regardless he will need to sleep off his current level of intoxication before driving or have someone come get him. Mr. Kuo does request that we look to see if there are beds at [facility]. Acknowledges need for sobriety. We are attempting to locate a bed and will anticipate providing transportation there considering risk of withdrawal. Appears medically clear for detox at this time Unable to accommodate at this time at [facility]. [facility] considering. I have filled out transportation forms including a transportation hold which I have discussed with Mr. MacDaniel. It may be yet that his spouse could provide transportation if he otherwise remains well. Anticipating handoff at change of shift. Medical Records Medical records reviewed: Yes I reviewed the patient's medical records Lab Data Labs: Lab Results 11/22/24 11/22/24 Range/Units 03:20 04:50 WBC 5.89 (4.50-11.00) K/uL RBC 3.60 L (4.30-5.90) m/uL Hgb 12.7 L (13.5-17.5) gm/dL Hct 37.3 (37.0-53.0) % MCV 104 H (80-100) fL MCH 35 H (26-34) pg MCHC 34 (32-36) gm/dL RDW Coeff of Lori 13.3 (11.5-15.5) % Plt Count 174 (140-440) K/uL Neut % (Auto) 40.2 L (42.0-72.0) % Lymph % (Auto) 47.7 H (20-44) % Miner % (Auto) 10.5 (0.0-11.0) % Eos % (Auto) 0.7 (0.0-7.0) % Baso % (Auto) 0.7 (0.0-3.0) % Neut # (Auto) 2.40 (1.7-7.0) K/uL Lymph # (Auto) 2.80 (0.90-2.90) K/uL Miner # (Auto) 0.60 (0.00-0.90) K/UL Eos # (Auto) 0.04 (0.00-0.50) K/uL Baso # (Auto) 0.04 (0.00-0.30) K/uL Abs Immat Gran (auto) 0.01 (0.00-0.30) K/uL Imm/Tot Granulo (auto) 0.2 % Sodium 143 (135-149) mmol/L Potassium 3.7 (3.6-5.1) mmol/L Chloride 104 (96-114) mmol/L Carbon Dioxide 28 (20-32) mmol/L Anion Gap 11 (7-15) mEq/L BUN 12 (7-30) mg/dL Creatinine 0.7 (0.5-1.5) mg/dL Estimated Creat Clear 115.79 Estimated GFR 110 ml/min Glucose 105 (60-115) mg/dL Calcium 9.6 (8.4-10.6) mg/dL Magnesium 1.8 (1.5-2.6) mg/dL Total Bilirubin 0.4 (0.1-1.5) mg/dL Direct Bilirubin 0.3 (0.0-0.5) mg/dL AST 333 H (12-35) U/L ALT 315 H (4-50) U/L Alkaline Phosphatase 77 (40-150) U/L NT-Pro-B Natriuret Pep < 20 (See Note) pg/mL Total Protein 6.6 (6.0-8.3) g/dL Albumin 4.3 (3.3-5.0) g/dL Vitamin B12 699 (243-894) pg/mL 25-OH Vitamin D Total 21 L (30-80) ng/mL Urine Color Yellow (Yellow) Urine Appearance Clear (Clear) Urine pH 5.5 (5.0-8.5) Ur Specific [place] >= 1.030 (1.000-1.030) Urine Protein Negative (Negative) Urine Glucose (UA) Negative (Negative) Urine Ketones Trace A (Negative) Urine Blood Trace-intact A (Negative) Urine Nitrite Negative (Negative) Urine Bilirubin Negative (Negative) Urine Urobilinogen 0.2 (0.2-1.0) Ur Leukocyte Esterase Negative (Negative) Urine RBC 0-2 (0-2) Urine WBC 0-2 (0-5) Ur Squamous Epith Cells None (None-Few) Urine Bacteria None (None) Urine Opiates Screen Negative (Negative) Ur Buprenorphine Scrn Negative (Negative) Ur Oxycodone Screen Negative (Negative) Urine Methadone Screen Negative (Negative) Ur Barbiturates Screen Negative (Negative) U Tricyclic Antidepress Negative (Negative) Ur Phencyclidine Scrn Negative (Negative) Ur Amphetamines Screen Negative (Negative) U Methamphetamines Scrn Negative (Negative) U Benzodiazepines Scrn Negative (Negative) Urine Cocaine Screen Negative (Negative) U Marijuana (THC) Screen Negative (Negative) Ur Drug Screen Comment See Note Ethyl Alcohol 0.23 H (0.01-0.03) % SARS-CoV-2 (PCR) Negative SARS-CoV-2 (Negative) Influenza Type A (PCR) Negative PCR FLU A (Negative) Influenza Type B (PCR) Negative PCR FLU B (Negative) Discharge Plan Discharge Clinical Impression: Alcohol intoxication, Fatigue, Malnutrition Patient Disposition: Xfer Other Discharge Location: [facility] Condition: Stable Additional Instructions: Please go directly to [facility]. Best wishes in your efforts at sobriety. Prescriptions: No Action Shana Stand Alone Forms: [employer] Info Instructions
[2024-11-22 04:29] LABS: Appearance Urine Clear (Clear)
[2024-11-22] MEDS: FOLIC ACID 1 MG in 0.9 % SODIUM CHLORIDE 50 ml 50 ML 100.4 MG IVPB (04:50)
[2024-11-22] MEDS: THIAMINE 250 MG in 0.9 % SODIUM CHLORIDE 100 ml 100 ML 102.5 MG IVPB (04:55)
[2024-11-22 04:59] LABS: Hematocrit* 37.3 % (37.0-53.0); Hemoglobin* 12.7 gm/dL (13.5-17.5); Immature Granulocytes Abs Auto 0.01 K/uL (0.00-0.30); Immature Granulocytes Pct Auto 0.2 %; Mean Corpuscular HGB Conc 34 gm/dL (32-36); Mean Corpuscular Hemoglobin 35 pg (26-34); Mean Corpuscular Volume 104 fL (80-100); RDW Coefficient of Variation % 13.3 % (11.5-15.5); Red Blood Count* 3.60 m/uL (4.30-5.90); White Blood Count* 5.89 K/uL (4.50-11.00)
[2024-11-22 05:02] LABS: Albumin* 4.3 g/dL (3.3-5.0); Chloride* 104 mmol/L (96-114); Sodium* 143 mmol/L (135-149)
[2024-11-22 05:03] LABS: Potassium* 3.7 mmol/L (3.6-5.1)
[2024-11-22 05:05] LABS: Alanine Aminotransferase* 315 U/L (4-50); Anion Gap 11 mEq/L (7-15); Aspartate Amino Transferase* 333 U/L (12-35); Blood Urea Nitrogen* 12 mg/dL (7-30); Carbon Dioxide* 28 mmol/L (20-32); Creatinine* 0.7 mg/dL (0.5-1.5); Est. Creatinine Clearance* 115.79; Estimated Glomerular Filt Rate 110 ml/min; Total Protein* 6.6 g/dL (6.0-8.3)
[2024-11-22 05:06] LABS: Alkaline Phosphatase* 77 U/L (40-150); Bilirubin Direct* 0.3 mg/dL (0.0-0.5); Bilirubin Total* 0.4 mg/dL (0.1-1.5); Calcium* 9.6 mg/dL (8.4-10.6); Ethanol* 0.23 % (0.01-0.03); Glucose* 105 mg/dL (60-115)
[2024-11-22 05:08] LABS: Cannabinoid Screen Urine Negative (Negative); Methamphetamines Screen Urine Negative (Negative); Tricyclic Antidepressant Urine Negative (Negative)
[2024-11-22 05:10] LABS: Lymphocytes Absolute Auto 2.80 K/uL (0.90-2.90); Slide Review Reflex No
[2024-11-22 05:22] LABS: NT Pro B Type NatriureticPept* < 20 pg/mL (See Note)
[2024-11-22 05:26] LABS: Vitamin D 25 Hydroxy* 21 ng/mL (30-80)
[2024-11-22 05:41] LABS: PCR FLU A Negative PCR FLU A (Negative); PCR FLU B Negative PCR FLU B (Negative); SARS PCR* Negative SARS-CoV-2 (Negative)
[2024-11-22 05:55] LABS: Vitamin B12* 699 pg/mL (243-894)
[2024-11-22] MEDS: NICOTINE 4 MG GUM BUCCAL (06:59)
[2024-11-22 09:40] LABS: Ethanol* 0.09 % (0.01-0.03)
[2024-11-22 10:09] VITALS: BP 135/89; PULSE 78; RESP 16
[2024-11-23 20:58] LABS: Folate, Serum 8.1 ng/mL (>=5.9)
[2024-11-25 07:05] LABS: Vitamin B1, Whole Blood 125 nmol/L (70-180)
== END 2024-11-22 10:09 | disposition other institution (70) ==
PROVIDERS: Family Medicine; Emergency Provider Emergency Medicine
DX: F10.229 Alcohol dependence with intoxication, unspecified (principal); R53.83 Other fatigue; E46 Unspecified protein-calorie malnutrition
CPT/HCPCS: 36415; 80048; 80076; 80306; 81001; 82077; 82306; 82607; 82746; 83735; 83880; 84207; 84425; 85025; 87631; 96365; 99284; 99285; J3411; J7030